=== PATIENT | female | born 1965 | race Caucasian/White ===

== ENCOUNTER → 2024-01-03 07:58 | Outpatient (REF) | payer BC, SELFPAY ==
[2024-01-03 09:49] LABS: % Basophils 0.9 % (0-2); % Immature Granulocytes 0.2 % (0-0.5); % Lymphocytes 32.1 % (20.5-51.1); % Monocytes 6.6 % (1.7-9.3); % Neutrophils 54.2 % (42.2-75.2); Absolute Basophils 0.1 10^3/uL (0-0.2); Absolute Eosinophils 0.3 10^3/uL (0-0.7); Absolute Lymphocytes 1.8 10^3/uL (1.2-3.4); Absolute Monocytes 0.4 10^3/uL (0.1-0.6); Hematocrit 41.2 % (37.0-47.0); Mean Corpuscular Hgb 30.8 pg (27.0-31.0); Mean Corpuscular Volume 90.7 fL (81.0-99.0); Nucleated Red Blood Cells % 0 %; Platelet Count 237 10^3/uL (130-400); Red Blood Cell Count 4.54 10^6/uL (4.20-5.40); Red Cell Dist. Width 12.5 % (11.5-14.5); White Blood Cell Count 5.5 10^3/uL (4.8-10.8)
[2024-01-03 10:39] LABS: ALT (SGPT) 24 U/L (0-35); AST (SGOT) 27 U/L (14-36); Albumin 4.5 g/dl (3.5-5.0); Alkaline Phosphatase 65 U/L (38-126); Blood Urea Nitrogen 15 mg/dl (7-17); Calcium 10.1 mg/dl (8.4-10.2); Carbon Dioxide 28 mmol/L (22-30); Chloride 101 mmol/L (98-107); Glucose 107 mg/dl (70-99); HDL Cholesterol 49 mg/dl; LDL Cholesterol, Calculated 111 mg/dl; Potassium 4.4 mmol/L (3.5-5.1); Sodium 139 mmol/L (135-145); Total Bilirubin 0.9 mg/dl (0.2-1.3); Total Cholesterol 186 mg/dl (50-199); Triglyceride 130 mg/dl (10-149); Very Low Density Lipoprotein 26 mg/dl (0-30); eGFR > 60.00
== END ==
LOC: HWWDC 07:58
PROVIDERS: ATTENDING PHYSICIAN Nurse Practitioner
DX: Z12.31 Encounter for screening mammogram for malignant neoplasm of breast (principal); E78.2 Mixed hyperlipidemia; Z00.01 Encounter for general adult medical examination with abnormal findings
CPT/HCPCS: 36415; 77063; 77067; 80053; 80061; 84443; 85025

== ENCOUNTER → 2024-01-10 10:10 | Outpatient (REF) | payer BC, SELFPAY | LOC: WDC 10:10 | PROVIDERS: ATTENDING PHYSICIAN Nurse Practitioner | DX: R92.8 Other abnormal and inconclusive findings on diagnostic imaging of breast (principal) | CPT/HCPCS: 76642 ==

== ENCOUNTER 2024-03-13 16:30 | Emergency (ER) | payer BC, SELFPAY ==
[2024-03-13 16:32] VITALS: BP 126/82
[2024-03-13] MEDS: PROTONIX IV 80 MG IV (16:56)
[2024-03-13 17:09] LABS: % Basophils 0.7 % (0-2); % Eosinophils 1.3 % (0-6); % Immature Granulocytes 0.1 % (0-0.5); % Lymphocytes 29.8 % (20.5-51.1); % Monocytes 4.1 % (1.7-9.3); Absolute Basophils 0.1 10^3/uL (0-0.2); Absolute Eosinophils 0.1 10^3/uL (0-0.7); Absolute Lymphocytes 2.5 10^3/uL (1.2-3.4); Absolute Monocytes 0.3 10^3/uL (0.1-0.6); Absolute Neutrophils 5.3 10^3/uL (1.4-6.5); Hematocrit 40.1 % (37.0-47.0); Mean Corp Hgb Conc. 34.9 g/dL (33.0-37.0); Mean Corpuscular Hgb 30.8 pg (27.0-31.0); Mean Corpuscular Volume 88.1 fL (81.0-99.0); Mean Platelet Volume 9.6 fL (7.4-10.4); Nucleated Red Blood Cells % 0 %; Platelet Count 245 10^3/uL (130-400); Red Blood Cell Count 4.55 10^6/uL (4.20-5.40); Red Cell Dist. Width 12.5 % (11.5-14.5); White Blood Cell Count 8.3 10^3/uL (4.8-10.8)
[2024-03-13 17:23] LABS: ALT (SGPT) 33 U/L (0-35); AST (SGOT) 29 U/L (14-36); Albumin 4.5 g/dl (3.5-5.0); Alkaline Phosphatase 61 U/L (38-126); Blood Urea Nitrogen 17 mg/dl (7-17); Calcium 9.8 mg/dl (8.4-10.2); Carbon Dioxide 30 mmol/L (22-30); Chloride 99 mmol/L (98-107); Glucose 121 mg/dl (70-99); Lipase 91 U/L (23-300); Potassium 3.7 mmol/L (3.5-5.1); Sodium 136 mmol/L (135-145); Total Protein 6.9 g/dl (6.3-8.2); eGFR > 60.00
[2024-03-13] MEDS: ZOFRAN 4 MG IV (18:12)
[2024-03-13 18:14] LABS: Urine Albumin Negative (Neg - Trace); Urine Bilirubin Negative (Negative); Urine Character Clear (Clear); Urine Color Yellow; Urine Glucose Negative (Negative); Urine Ketone Negative (Negative); Urine Leukocyte Negative (Negative); Urine Nitrite Negative (Negative); Urine Occult Blood Negative (Negative); Urine Specific Gravity 1.005 (<1.030); Urine Urobilinogen Negative (Neg - 1+); Urine pH 6.5 (5.0-9.0)
[2024-03-13] MEDS: CARAFATE SUSPENSION 1 GM PO (18:40)
--- NOTE | 2024-03-13 18:43 | ED.GENMED ---
History of Present Illness
General
Chief Complaint: Abdominal Symptoms
Source: patient
Time Seen by Provider: 03/13/24 16:35
Travel History
Have you had any contact with someone who has COVID-19?: No
Do you have any symptoms of coronavirus? Fever > 100 degrees, chills, cough, shortness of breath, sore throat, loss of taste or smell, muscle aches, or headache?: No
History of Present Illness
History of Present Illness:
58-year-old female who presents with upper abdominal pain has been ongoing for 3 days. Patient states that she was at a green party the day before and wondered if. She had eaten. She had an outpatient CT done today was advised by PCP to come to the
hospital. She did have an endoscopy 4 years ago. She states that it was unremarkable. Patient states that prior to 3 days ago she had not felt like this. No melena or hematochezia. No hematemesis. She states she is only here because she was
advised to come here by her PCP
Past History
Past History
ED Past Medical History: Psychiatric (ADHD, A/D) and Other (History of dysfunctional uterine bleeding)
ED Past Surgical History: None, Orthopedic (Right knee meniscus repair) and Other (Hysteroscopy, D&C, colonoscopy)
Social History
Tobacco: Former smoker (quit cigs 2017, currently vapes)
Alcohol: Occasional
Personal:
Living: with family
Employment: Employed
Family History
Family History: Negative Early CAD
Phy Exam
Physical Exam
Physical Exam:
CONSTITUTIONAL Patient alert and oriented to person, place and time. Well-appearing. Vital signs reviewed.
HEAD atraumatic, normocephalic.
EYES eyelids normal to inspection, Pupils equally round and reactive to light, Extraocular muscles intact, Conjunctiva normal, Sclera normal.
NECK normal range of motion, Trachea midline, no jugular venous distention.
RESPIRATORY CHEST No respiratory distress noted, Chest expansion equal
ABDOMEN mild to moderate epigastric tenderness, Bowel sounds normal. No distention.
BACK normal inspection, no obvious deformities
UPPER EXTREMITY range of motion normal, Motor strength normal, no cyanosis, no edema.
LOWER EXTREMITY range of motion normal, Motor strength normal, no cyanosis, no edema.
NEURO Speech normal, No focal motor deficits, Bryant coma scale 15, Memory normal, Cranial Nerves intact to screening exam.
SKIN skin warm, dry, and normal in color.
PSYCHIATRIC patient oriented to person place and time, Normal affect.
Course
Orders/Labs/Results
Orders:
Orders
03/13/24 16:46
Pantoprazole [Protonix IV] 80 mg IV NOW STA
03/13/24 16:55
Complete Blood Count/With Diff Urgent
Comprehensive Metabolic Panel Urgent
Lipase Urgent
03/13/24 18:07
Urinalysis Reflex To Culture Urgent
Date Specimen was Collected: 03/13/24
Time Specimen was Collected: 18:06
03/13/24 18:10
Ondansetron Injectable [Zofran] 4 mg IV NOW STA
Sucralfate Suspension [Carafate Suspension] 1 gm PO NOW STA
Abnormal Lab Results
03/13/24
16:55
Glucose 121 H mg/dl
(70-99)
03/13/24 16:55
03/13/24 16:55
Vital Signs
Initial and Last Documented VS:
Initial Vital Signs
Temp Pulse Resp BP Pulse Ox
98.1 F 96 16 126/82 99
03/13/24 16:32 03/13/24 16:32 03/13/24 16:32 03/13/24 16:32 03/13/24 16:32
Last Documented Vital Signs
Temp Pulse Resp BP Pulse Ox
98.1 F 96 16 126/82 99
03/13/24 16:32 03/13/24 16:32 03/13/24 16:32 03/13/24 16:32 03/13/24 16:32
MDM/Problems Addressed
Differential Diagnosis Includes:
Peptic ulcer disease, duodenitis, gastric neoplasm, cholelithiasis, cholecystitis
MDM/Problems Addressed:
Gastric wall thickening, gastritis
*Radiology
Radiology exam reviewed: radiology read reviewed
*Pulse Oximetry
Patient hypoxic: no
*Critical Care Note
Total Time (30-74mins, 75-104mins- exclusive of procedures): Not Applicable
Data Reviewed
Source: patient
Further Testing Considered But Not Given:
Considered CT but patient just had a CT.
Patient Management
Discussion with other providers: Material Clerk (Gastroenterology)
Escalation/DeEscalation of care consider admission/obs:
Case discussed with gastroenterology as I do feel that she could benefit from endoscopy. They can see her on Monday. Will increase PPI to twice daily and add Carafate. Patient is scheduled for an appointment on Monday with GI at 1130
ED Attending Note
-
Portions of this chart may have been created with voice recognition software.� Occasional wrong word or��sound alike� substitutions may have occurred due to the inherent limitations of voice recognition software.
Discharge Plan
Departure
Patient Disposition: Home (Routine Discharge)
Date of Disposition: 03/13/24
Time of Disposition: 18:49
Patient with high blood pressure during this ER visit?: No
Discharge Problem:
Epigastric abdominal pain, Gastritis
Instructions: Abdominal Pain
Prescriptions:
New
sucralfate [Carafate] 100 mg/mL suspension
10 ml PO QID Qty: 400 0RF
No Action
duloxetine 60 MG capsule,delayed release(DR/EC)
120 mg PO DAILY
irbesartan 150 MG tablet
150 mg PO DAILY
Vyvanse 30 mg Capsule
30 mg PO DAILY
doxycycline hyclate 100 mg capsule
100 mg PO [id number]
Patient Comments:
10 tabs left per pt
ferrous sulfate [Iron (ferrous sulfate)] 325 mg (65 mg iron) Tablet
325 mg PO DAILY
naproxen sodium [Aleve] 220 mg Tablet
220 mg PO BID PRN (Reason: mild pain)
magnesium 250 mg Tablet
250 mg PO DAILY
esomeprazole magnesium [Nexium] 20 mg Capsule,Delayed Release(Dr/Ec)
20 mg PO DAILY
doxycycline hyclate 100 mg Capsule
100 mg PO Q12 2 Days Qty: 4 0RF
Referrals:
Cheryl Alejandro CRNP [Family Provider] -
Activity Restrictions/Additional Instructions:
Please increase your pantoprazole to twice a day (first dose 30minutes
Interventions
Interventions:
*Risk Screen - Suicide Last Done: 03/13/24 17:03
*General Assessment Last Done: 03/13/24 16:32
*Neglect/Abuse Screening Last Done: 03/13/24 16:37
ED- Fall Risk Assessment Last Done: 03/13/24 17:03
*ED COVID-19 Vaccine History Last Done: 03/13/24 17:03
GZ-Szzsbw-Zxxgktiisp Assessment Last Done: 03/13/24 17:03
Discharge Date and Time
Print Language: LITHUANIAN
[2024-03-13 18:51] VITALS: BP 92/52
== END 2024-03-13 19:06 | disposition home or self-care (01) ==
LOC: EMR 16:30
PROVIDERS: EMERGENCY PHYSICIAN Emergency Medicine; FAMILY PHYSICIAN Nurse Practitioner
DX: R10.13 Epigastric pain (principal); K29.00 Acute gastritis without bleeding; F90.9 Attention-deficit hyperactivity disorder, unspecified type; F32.A Depression, unspecified; F41.9 Anxiety disorder, unspecified; N93.8 Other specified abnormal uterine and vaginal bleeding; Z87.891 Personal history of nicotine dependence
CPT/HCPCS: 99284; 96375; 96374; 74177; 80053; 81003; 83690; 85025; Q9967

== ENCOUNTER → 2024-04-03 06:38 | Day surgery (SDC) | payer BC, SELFPAY | LOC: GI 06:38 | PROVIDERS: ATTENDING PHYSICIAN Internal Medicine Gastroenterology | DX: R93.3 Abnormal findings on diagnostic imaging of other parts of digestive tract (principal); K22.89 Other specified disease of esophagus; K44.9 Diaphragmatic hernia without obstruction or gangrene; K31.7 Polyp of stomach and duodenum; K29.50 Unspecified chronic gastritis without bleeding; K21.00 Gastro-esophageal reflux disease with esophagitis, without bleeding; K29.60 Other gastritis without bleeding | CPT/HCPCS: 43239; 88305; 88342 ==

== ENCOUNTER → 2025-07-31 11:13 | Outpatient (REF) | payer BC, SELFPAY | LOC: WDC 11:13 | DX: Z12.31 Encounter for screening mammogram for malignant neoplasm of breast (principal) | CPT/HCPCS: 77063; 77067 ==

== ENCOUNTER 2025-08-25 06:26 | Day surgery (SDC) | payer BC, SELFPAY | END 2025-08-25 11:41 | disposition home or self-care (01) | LOC: GI 06:26 | PROVIDERS: ATTENDING PHYSICIAN Internal Medicine Gastroenterology | DX: Z12.11 Encounter for screening for malignant neoplasm of colon (principal); D12.3 Benign neoplasm of transverse colon; K64.8 Other hemorrhoids; Z86.0100 Personal history of colon polyps, unspecified | CPT/HCPCS: 45380; 88305 ==